=== PATIENT | female | born 1990 | race Caucasian/White ===

== ENCOUNTER 2018-10-13 02:48 | Emergency (ER) | payer MEDICAID ==
--- NOTE | 2018-10-13 02:58 | EDM.PDOC ---
ED HPI GENERAL MEDICAL PROBLEM - General Stated Complaint: PSYCHOLOGICAL Time Seen by Provider: 10/13/18 02:49 - History of Present Illness INITIAL COMMENTS - FREE TEXT/NARRATIVE: HISTORY AND PHYSICAL: History of present illness: The patient is a 28-year-old female who arrives via EMS after they were called for self-inflicted wounds to anterior chest wall. The patient had several lacerations at the anterior chest wall and says that she did it with intent to harm herself because her "love of her life" got an airplane to go to [place] to me with another girl. The patient tells me that she lives in [place] and she has had several admissions for depression anxiety suicidal ideation and suicide attempts. She has a long-standing history of cutting and frequently cuts her left forearm and wrist and that is not new or different. She denies taking any pills and freely admits that she drank alcohol tonight and does smoke pot to relax herself when she is anxious. She denies that she is taking any current medication and it is unclear from her history if she is supposed to be on those meds and does not take them or she was not prescribed any. Patient is clearly intoxicated here in the ED but is cooperative and denies any other systemic complaints. Up-to-date on her tetanus because she was boosted 2 years ago when she was . Per police the patient's boyfriend is the one who called them and got them involved and they subserosally called EMS. The patient tells me that she called EMS which is not the truth and she repeatedly says to me that she doesn't want to be here but that she did this intentionally. Review of systems: As per history of present illness and below otherwise all systems reviewed and negative. Past medical history: As per history of present illness and as reviewed below otherwise noncontributory. Surgical history: As per history of present illness and as reviewed below otherwise noncontributory. Social history: No reported history of drug or alcohol abuse. Family history: As per history of present illness and as reviewed below otherwise noncontributory. Physical exam: General: Well-developed well-nourished thin female who is nontoxic and speaking clearly easily in the ED. She has slight slurring of her speech and is tearful with my evaluation HEENT: Atraumatic, normocephalic, pupils reactive, sclera are slightly injected negative for conjunctival pallor or scleral icterus, mucous membranes moist, throat clear, neck supple, nontender, trachea midline. Lungs: Clear to auscultation, breath sounds equal bilaterally, chest nontender. No worker breathing stridor or wheezing. There is no evidence of any crepitus to the anterior chest wall where the wounds are seen. At the medial right breast /chest wall area there is a 1.25 cm laceration which has some wheezing and appears to extend to the subcutaneous tissue, there is a 1.0 cm laceration at the left medial breast/chest wall area just to the left of the sternum and there is a 0.5 cm laceration near the right breast, there are some scattered superficial scratches seen the most noteworthy is 1 at the right breast to the right of the area left and there is another scratch/superficial Kiel at the left breast. None of these areas are tender or swollen. Heart: S1S2, regular, negative for clicks, rubs, or JVD. Abdomen: Soft, nondistended, nontender. Negative for masses or hepatosplenomegaly. Negative for costovertebral tenderness. Pelvis: Stable nontender. Genitourinary: Deferred. Rectal: Deferred. Extremities: Atraumatic, negative for cords or calf pain. Neurovascular unremarkable. Full range of motion without defects or deficits. At the left wrist and forearm there are several superficial scratches/laceration seen and multiple old well-healed scars seen from prior cutting. There is no neurovascular changes in the hand and no other bernardo seen on the extremities Neuro: Awake, alert, oriented. Cranial nerves II through XII unremarkable. Cerebellum unremarkable. Motor and sensory unremarkable throughout. Exam nonfocal. Back: There are no midline step-offs tenderness defects of the thoracic or lumbar spine and no soft tissue injuries are seen. Diagnostics: CBC CMP alcohol level TSH UA UDS UCG chest x-ray, inspiratory and expiratory views Therapeutics: Local wound care, Keflex Ativan Zyprexa IV fluids Patient refused the Keflex initially and then did subsequently take the dose. 0324: Case was discussed with the psychiatrist at [facility] in [place], Dr. Lundberg. He accepts the patient for transfer and I will hold the patient here to check all of her blood work and also do the PAULA 0435: Patient continues to resist giving a urine sample fighting with my staff arguing with me yelling and not allowing her care plan to proceed. At this point we will place a saline lock and give IV fluids and IV Ativan to diffuse this situation pharmacologically. 0525: Patient is more calm after the IV Ativan but intermittently will yell and try to sit up. All labs are back and we will arrange for transport to [place] Procedure note: After explaining the procedure to the patient the wounds were cleansed and prepped and draped in sterile fashion and 1% lidocaine was infused in the larger 2 of the puncture lacerations. A total number of #2 sutures of 4- 0 chromic were placed in the larger 1.25 centimeter laceration on the right breast and a total number of #1 suture of 4-0 chromic was placed in the 1.0 cm laceration on the left. There were no complications and the patient tolerated the procedure well. It should be noted that throughout the course of the procedure the patient was very mobile moving around and and compromising the sterile field. There was a lot of oozing and hemostasis at the larger laceration on the left had to be achieved with pressure. Steri-Strips were then applied. Impression: Depression with suicide attempt history of same, alcohol intoxication; lacerations of anterior chest wall Definitive disposition and diagnosis as appropriate pending reevaluation and review of above. - Related Data Allergies Allergy/AdvReac Type Severity Reaction Status Date / Time No Known Allergies Allergy Verified 10/13/18 03:08 Home Meds: Home Meds Enoxaparin Sodium [Lovenox] 40 mg INJECT DAILY 10/13/18 [History] Past Medical History Other HEENT History: migraine Genitourinary History: Reports: [employer]OPER History: Reports: Psychiatric History: Reports: Depression Social & Family History - Family History Family Medical History: Unobtainable ED ROS GENERAL - Review of Systems Review Of Systems: ROS reveals no pertinent complaints other than HPI. ED EXAM, GENERAL - Physical Exam Exam: See Below (See dictation) Course - Vital Signs Last Recorded V/S: Last Vital Signs Temp 36.7 C 10/13/18 03:01 Pulse 118 H 10/13/18 03:01 Resp 20 10/13/18 03:01 BP 134/96 H 10/13/18 03:01 Pulse Ox 100 10/13/18 03:01 - Orders/Labs/Meds Orders: Active Orders 24 hr Category Date Time Status EKG Documentation Completion [RC] STAT Care 10/13/18 02:51 Inactive Chest Special 1V [CR] Routine Exams 10/13/18 03:36 Taken Sodium Chloride 0.9% [Normal Saline] 1,000 ml Med 10/13/18 04:37 Active IV STAT Sodium Chloride 0.9% [Saline Flush] Med 10/13/18 04:37 Active 10 ml FLUSH ASDIRECTED PRN Sodium Chloride 0.9% [Saline Flush] Med 10/13/18 04:37 Active 2.5 ml FLUSH ASDIRECTED PRN Saline Lock Insert [OM.PC] Stat Oth 10/13/18 04:37 Ordered Medication Orders Sodium Chloride (Normal Saline) 1,000 mls @ 999 mls/hr IV STAT ONE Stop: 10/13/18 05:37 Last Admin: 10/13/18 04:52 Dose: 999 mls/hr Sodium Chloride (Saline Flush) 10 ml FLUSH ASDIRECTED PRN PRN Reason: Keep Vein Open Sodium Chloride (Saline Flush) 2.5 ml FLUSH ASDIRECTED PRN PRN Reason: Keep Vein Open Labs: Laboratory Tests 10/13/18 10/13/18 10/13/18 Range/Units 03:38 03:38 05:05 WBC 10.45 (4.0-11.0) K/uL RBC 4.51 (4.30-5.90) M/uL Hgb 13.9 (12.0-16.0) g/dL Hct 40.3 (36.0-46.0) % MCV 89.4 (80.0-98.0) fL MCH 30.8 (27.0-32.0) pg MCHC 34.5 (31.0-37.0) g/dL RDW Std Deviation 46.0 (28.0-62.0) fl RDW Coeff of Ke 14 (11.0-15.0) % Plt Count 344 (150-400) K/uL MPV 9.30 (7.40-12.00) fL Neut % (Auto) 80.4 H (48.0-80.0) % Lymph % (Auto) 13.6 L (16.0-40.0) % [place] % (Auto) 5.3 (0.0-15.0) % Eos % (Auto) 0.5 (0.0-7.0) % Baso % (Auto) 0.2 (0.0-1.5) % Neut # (Auto) 8.4 H (1.4-5.7) K/uL Lymph # (Auto) 1.4 (0.6-2.4) K/uL [place] # (Auto) 0.6 (0.0-0.8) K/uL Eos # (Auto) 0.1 (0.0-0.7) K/uL Baso # (Auto) 0.0 (0.0-0.1) K/uL Nucleated RBC % 0.0 /100WBC Nucleated RBCs # 0 K/uL Sodium 140 (136-145) mmol/L Potassium 3.8 (3.5-5.1) mmol/L Chloride 103 (98-107) mmol/L Carbon Dioxide 25.6 (21.0-32.0) mmol/L BUN 9 (7.0-18.0) mg/dL Creatinine 0.8 (0.6-1.0) mg/dL Est Cr Clr Drug Dosing 65.53 mL/min Estimated GFR (MDRD) > 60.0 ml/min Glucose 128 H (74-106) mg/dL Calcium 9.5 (8.5-10.1) mg/dL Total Bilirubin 0.2 (0.2-1.0) mg/dL AST 31 (15-37) IU/L ALT 34 (14-63) IU/L Alkaline Phosphatase 90 (46-116) U/L Total Protein 8.5 H (6.4-8.2) g/dL Albumin 4.4 (3.4-5.0) g/dL Globulin 4.1 H (2.6-4.0) g/dL Albumin/Globulin Ratio 1.1 (0.9-1.6) TSH 3rd Generation 1.33 (0.36-3.74) uIU/mL Urine Color YELLOW Urine Appearance HAZY Urine pH 6.0 (5.0-8.0) Ur Specific [place] <= 1.005 (1.001-1.035) Urine Protein NEGATIVE (NEGATIVE) mg/dL Urine Glucose (UA) NEGATIVE (NEGATIVE) mg/dL Urine Ketones NEGATIVE (NEGATIVE) mg/dL Urine Occult Blood SMALL H (NEGATIVE) Urine Nitrite NEGATIVE (NEGATIVE) Urine Bilirubin NEGATIVE (NEGATIVE) Urine Urobilinogen 0.2 (<2.0) EU/dL Ur Leukocyte Esterase NEGATIVE (NEGATIVE) Urine RBC 0-2 (0-2/HPF) Urine WBC 0-1 (0-5/HPF) Ur Epithelial Cells RARE (NONE-FEW) Urine Bacteria RARE (NEGATIVE) Urine HCG, Qual (NEGATIVE) Urine Opiates Screen (NEGATIVE) Ur Oxycodone Screen (NEGATIVE) Urine Methadone Screen (NEGATIVE) Ur Barbiturates Screen (NEGATIVE) Ur Phencyclidine Scrn (NEGATIVE) Ur Amphetamine Screen (NEGATIVE) U Methamphetamines Scrn (NEGATIVE) U Benzodiazepines Scrn (NEGATIVE) U Cocaine Metab Screen (NEGATIVE) U Marijuana (THC) Screen (NEGATIVE) Ethyl Alcohol 322 mg/dL 10/13/18 10/13/18 Range/Units 05:05 05:05 WBC (4.0-11.0) K/uL RBC (4.30-5.90) M/uL Hgb (12.0-16.0) g/dL Hct (36.0-46.0) % MCV (80.0-98.0) fL MCH (27.0-32.0) pg MCHC (31.0-37.0) g/dL RDW Std Deviation (28.0-62.0) fl RDW Coeff of Ke (11.0-15.0) % Plt Count (150-400) K/uL MPV (7.40-12.00) fL Neut % (Auto) (48.0-80.0) % Lymph % (Auto) (16.0-40.0) % [place] % (Auto) (0.0-15.0) % Eos % (Auto) (0.0-7.0) % Baso % (Auto) (0.0-1.5) % Neut # (Auto) (1.4-5.7) K/uL Lymph # (Auto) (0.6-2.4) K/uL [place] # (Auto) (0.0-0.8) K/uL Eos # (Auto) (0.0-0.7) K/uL Baso # (Auto) (0.0-0.1) K/uL Nucleated RBC % /100WBC Nucleated RBCs # K/uL Sodium (136-145) mmol/L Potassium (3.5-5.1) mmol/L Chloride (98-107) mmol/L Carbon Dioxide (21.0-32.0) mmol/L BUN (7.0-18.0) mg/dL Creatinine (0.6-1.0) mg/dL Est Cr Clr Drug Dosing mL/min Estimated GFR (MDRD) ml/min Glucose (74-106) mg/dL Calcium (8.5-10.1) mg/dL Total Bilirubin (0.2-1.0) mg/dL AST (15-37) IU/L ALT (14-63) IU/L Alkaline Phosphatase (46-116) U/L Total Protein (6.4-8.2) g/dL Albumin (3.4-5.0) g/dL Globulin (2.6-4.0) g/dL Albumin/Globulin Ratio (0.9-1.6) TSH 3rd Generation (0.36-3.74) uIU/mL Urine Color Urine Appearance Urine pH (5.0-8.0) Ur Specific [place] (1.001-1.035) Urine Protein (NEGATIVE) mg/dL Urine Glucose (UA) (NEGATIVE) mg/dL Urine Ketones (NEGATIVE) mg/dL Urine Occult Blood (NEGATIVE) Urine Nitrite (NEGATIVE) Urine Bilirubin (NEGATIVE) Urine Urobilinogen (<2.0) EU/dL Ur Leukocyte Esterase (NEGATIVE) Urine RBC (0-2/HPF) Urine WBC (0-5/HPF) Ur Epithelial Cells (NONE-FEW) Urine Bacteria (NEGATIVE) Urine HCG, Qual NEGATIVE (NEGATIVE) Urine Opiates Screen NEGATIVE (NEGATIVE) Ur Oxycodone Screen NEGATIVE (NEGATIVE) Urine Methadone Screen NEGATIVE (NEGATIVE) Ur Barbiturates Screen NEGATIVE (NEGATIVE) Ur Phencyclidine Scrn NEGATIVE (NEGATIVE) Ur Amphetamine Screen NEGATIVE (NEGATIVE) U Methamphetamines Scrn NEGATIVE (NEGATIVE) U Benzodiazepines Scrn NEGATIVE (NEGATIVE) U Cocaine Metab Screen NEGATIVE (NEGATIVE) U Marijuana (THC) Screen POSITIVE (NEGATIVE) Ethyl Alcohol mg/dL Meds: Medications Generic Name Dose Route Start Last Admin Trade Name Freq PRN Reason Stop Dose Admin Sodium Chloride 1,000 mls @ 999 mls/hr 10/13/18 04:37 10/13/18 04:52 Normal Saline IV 02/09/19 05:37 999 mls/hr STAT ONE Administration Sodium Chloride 10 ml 10/13/18 04:37 Saline Flush FLUSH ASDIRECTED PRN Keep Vein Open Sodium Chloride 2.5 ml 10/13/18 04:37 Saline Flush FLUSH ASDIRECTED PRN Keep Vein Open Discontinued Medications Generic Name Dose Route Start Last Admin Trade Name Freq PRN Reason Stop Dose Admin Cephalexin 500 mg 10/13/18 03:00 10/13/18 03:57 Keflex PO 10/13/18 03:01 500 mg ONETIME ONE Administration Cephalexin Confirm 10/13/18 03:02 10/13/18 03:57 Keflex Administered 10/13/18 03:03 Not Given Dose 500 mg .ROUTE .STK-MED ONE Olanzapine 5 mg/ Sterile Water 2.1 mls @ 999 mls/hr 10/13/18 03:37 10/13/18 03:53 IM 10/13/18 03:38 999 mls/hr ONETIME ONE Administration Sterile Water Confirm 10/13/18 03:50 10/13/18 03:58 Sterile Water For Injection Administered 10/13/18 03:51 2.1 mls/hr Dose Administration 20 mls @ as directed .ROUTE .STK-MED ONE Lidocaine/Epinephrine 20 ml 10/13/18 04:12 Xylocaine 1% With Epinephrine 1:100,000 INJECT 10/13/18 04:13 ONETIME ONE Lorazepam 2 mg 10/13/18 02:59 10/13/18 03:09 Ativan IM 10/13/18 03:00 2 mg ONETIME ONE Administration Lorazepam Confirm 10/13/18 03:02 10/13/18 03:16 Ativan Administered 10/13/18 03:03 Not Given Dose 2 mg .ROUTE .STK-MED ONE Lorazepam 2 mg 10/13/18 04:36 Ativan IM 10/13/18 04:37 ONETIME ONE Lorazepam 2 mg 10/13/18 04:37 10/13/18 05:04 Ativan IVPUSH 10/13/18 04:38 2 mg ONETIME ONE Administration Lorazepam 1 mg 10/13/18 05:21 Ativan IVPUSH 10/13/18 05:22 ONETIME ONE Olanzapine Confirm 10/13/18 03:39 10/13/18 03:57 Zyprexa Administered 10/13/18 03:40 10 mg Dose Administration 10 mg .ROUTE .STK-MED ONE Departure - Departure Time of Disposition: 05:29 Disposition: DC/Tfer to Psych Hosp/Unit 65 Condition: Good Clinical Impression: Depressive disorder, Suicide attempt - Discharge Information - My Orders Last 24 Hours: My Active Orders 10/13/18 02:51 EKG Documentation Completion [RC] STAT 10/13/18 03:36 Chest Special 1V [CR] Routine 10/13/18 04:37 Sodium Chloride 0.9% [Normal Saline] 1,000 ml IV STAT Sodium Chloride 0.9% [Saline Flush] 10 ml FLUSH ASDIRECTED PRN Sodium Chloride 0.9% [Saline Flush] 2.5 ml FLUSH ASDIRECTED PRN Saline Lock Insert [OM.PC] Stat - Assessment/Plan Last 24 Hours: My Active Orders 10/13/18 02:51 EKG Documentation Completion [RC] STAT 10/13/18 03:36 Chest Special 1V [CR] Routine 10/13/18 04:37 Sodium Chloride 0.9% [Normal Saline] 1,000 ml IV STAT Sodium Chloride 0.9% [Saline Flush] 10 ml FLUSH ASDIRECTED PRN Sodium Chloride 0.9% [Saline Flush] 2.5 ml FLUSH ASDIRECTED PRN Saline Lock Insert [OM.PC] Stat
[2018-10-13] MEDS ORDERED: LORazepam 2 MG/ML SDV IM ONE ×2 (02:59→04:36)
[2018-10-13] MEDS ORDERED: Cephalexin 500 MG Cap PO ONE (03:00)
[2018-10-13] MEDS ORDERED: Cephalexin 500 MG Cap ONE (03:02)
[2018-10-13] MEDS ORDERED: LORazepam 2 MG/ML SDV ONE (03:02)
[2018-10-13] MEDS ORDERED: OLANZapine 5 MG in Water For Injection, Sterile 2.1 ML IM ONE (03:37)
[2018-10-13] MEDS ORDERED: OLANZapine 10 MG Vial ONE (03:39)
[2018-10-13] MEDS ORDERED: Water For Injection, Sterile 20 ML ONE (03:50)
[2018-10-13 04:10] LABS: CHLORIDE,CL 103 mmol/L (98-107); SODIUM,NA 140 mmol/L (136-145)
[2018-10-13] MEDS ORDERED: Lidocaine 1% with EPINEPHrine 1:100,000 20 ML MDV INJECT ONE (04:12)
--- NOTE | 2018-10-13 04:24 | CR ---
INDICATION: Pain and shortness of breath. COMPARISON: 05/30/2019 FINDINGS: An erect single view of the chest was obtained during inspiration at 0308 hours. The lungs remain clear. No focal or diffuse infiltrates are present. There is no sign of pneumothorax. Bilateral nipple piercings are present. The heart remains normal in size. The mediastinum is normal in appearance. The osseous structures are normal in appearance for the patient`s age. IMPRESSION: Normal chest single view. Dictated by Bakari Camp MD @ Oct 13 2018 4:19AM Signed by Dr. Bakari Camp @ Oct 13 2018 4:21AM
[2018-10-13] MEDS ORDERED: Sodium Chloride 0.9% 1,000 ML IV ONE (04:37)
[2018-10-13] MEDS ORDERED: Sodium Chloride 0.9% 10 ML Syringe FLUSH PRN (04:37)
[2018-10-13] MEDS ORDERED: Sodium Chloride 0.9% 2.5 ML Syringe FLUSH PRN (04:37)
[2018-10-13] MEDS ORDERED: LORazepam 2 MG/ML SDV IVPUSH ONE ×2 (04:37→05:21)
[2018-10-13 08:13] VITALS: BP 102/64
[2018-10-13] MEDS ORDERED: OLANZapine 10 MG in Water For Injection, Sterile 2.1 ML IM ONE (08:52)
--- NOTE | 2018-10-13 09:30 | CR ---
CHEST 1 VIEW AP INDICATION: Chest pain COMPARISON: Same date. 0325 hours. IMPRESSION: Stable heart size and vascular pattern. Lungs are clear of new focal opacities. No change previous No pneumothorax. Dictated by Alonzo Rodas MD @ Oct 13 2018 9:29AM Signed by Dr. Alonzo Rodas @ Oct 13 2018 9:29AM
--- NOTE | 2018-10-15 11:50 | CR ---
EXAM DATE: 10/13/18 PATIENT'S AGE: 28 Patient: ALBERTO AREVALO Facility: [facility] Site . Site : [id number] Study: XRay-Chest [id number]/9/2019 3:39:40 AM Ordering Physician: Alfreda Paredes Final Report: INDICATION: Chest pain. Rule out pneumothorax. COMPARISON: Inspiratory film from today at 0308 hours and previous chest film from 2008. FINDINGS: An erect single view of the chest was obtained during expiration at 0325 hours. The lungs remain clear. No focal or diffuse infiltrates are present. There is no sign of pneumothorax on this expiration film. There is no sign of mediastinal shift. Bilateral nipple piercings are present. The heart remains normal in size. The mediastinum is normal in appearance. The osseous structures are normal in appearance for the patient`s age. IMPRESSION: Normal chest single view obtained during expiration. No sign of pneumothorax. Dictated by Bakari Camp MD @ Oct 13 2018 4:21AM Signed by: Bakari Camp MD @10/13/2018 4:23:53 AM (Electronic Signature) Report Signed by Proxy. IGLESIA
== END 2018-10-13 09:15 ==
LOC: MW.ED 02:48
DX: F32.9 Major depressive disorder, single episode, unspecified (principal); T14.91XA Suicide attempt, initial encounter
CPT/HCPCS: 36415; 71045; 71046; 80053; 80305; 81001; 81025; 84443; 85025; A9270; G0480; J2060; J3490; J7040